=== PATIENT | female | born 1990 | race Caucasian/White ===

== ENCOUNTER 2017-11-29 13:41 | Emergency (ER) | payer OTHER ==
[~2017-11-29] VITALS: Ht 165.1 cm; Wt 100.5 kg
[~2017-11-29 13:41] MED LIST: DOCUSATE SODIU100 MG PO; ENDOCET 5-3251 EACH PO; FERROUS SULFAT325 MG PO; Flagyl PO; IBUPROFEN800 MG PO; Motrin PO; PRENATAL VITAM1 EAC3 PO; Percocet 5/325,Endoc PO; Prefera-OB Plus DHA PO; SERTRALINE HCL100 MG PO; VERMOX100 MG PO; ZOLOFT100 MG PO; Zoloft PO; Zovirax PO
[2017-11-29] MEDS ORDERED: ATIVAN1 MG PO (16:56)
[2017-11-29 17:10] VITALS: BP 109/63
== END 2017-11-29 17:16 | disposition home or self-care (01) ==
LOC: EME 13:41
DX: F31.0 Bipolar disorder, current episode hypomanic (principal); F41.1 Generalized anxiety disorder; F17.200 Nicotine dependence, unspecified, uncomplicated
CPT/HCPCS: 90839; 99281; 99283